=== PATIENT | male | born 1990 | race Caucasian/White ===

== ENCOUNTER 2018-03-11 13:14 | Emergency (ER) | payer OTHER ==
--- NOTE | 2018-03-11 14:03 | ED Physician Chart ---
ED Chief Complaint/HPI - Patient Information Date Seen:: 03/11/18 Time Seen:: 13:45 Chief Complaint:: rash History of Present Illness:: 27 yr old male with rash dorsum rt wrist for 3 mos pt smoker visiting here from [facility] has been using bactroban without relief Allergies:: Allergies Allergy/AdvReac Type Severity Reaction Status Date / Time No Known Allergies Allergy Verified 03/11/18 13:26 Vitals:: Vital Signs - 8 hr 03/11/18 03/11/18 13:29 13:48 Temp 97.8 F 97.8 F HR 85 85 RR 16 16 BP 129/92 129/82 O2 Sat % 95 99 ED Review of Systems - Review of Systems Skin: Skin lesions (rash crusty round in appearance moist in appearance) Head: No headache Eyes: No loss of vision ENT: No earache Neck: No neck pain Cardio Vascular: No chest pain Pulmonary: No SOB GI: No nausea, No vomiting G/U: No dysuria Endocrine: No polyuria Psychiatric: No anxiety Hematopoietic: No bruising Allergic/Immuno: No urticaria Neurological: No syncope ED Past Medical History - Past Medical History Past Medical History: No significant medical hx Family Medical History - Family Member Mother Living Status: Other Medical History: emphysema ED Physical Exam - Physical Examination Other Skin comments:: round circular lesion as round as a [place] on dorsum wrist moist scab like Neck: Nontender Respiratory: Nl effort/Exclusion Cardio Vascular: RRR GI: No tenderness/rebounding/guarding Extremities: No tenderness or effusion Neuro/Psych: Alert/oriented ED Septic Shock - . Is Septic Shock (SBP<90, OR Lactate>4 mmol\L) present?: No - <6hrs of presentation: Vital Signs: Vital Signs - 8 hr 03/11/18 03/11/18 13:29 13:48 Temp 97.8 F 97.8 F HR 85 85 RR 16 16 BP 129/92 129/82 O2 Sat % 95 99 ED Reassessment (Disposition) - Reassessment Reassessment Condition:: Unchanged - Diagnosis Diagnosis:: rash r/o tinea - Aftercare/Follow up Instructions Aftercare/Follow-Up Instructions:: Counseled pt regarding lab results/diagnosis & need follow up Medication Prescribed:: nizoral lotrimin cream - Patient Disposition Discharge/Transfer:: Home Condition at Disposition:: Stable
== END 2018-03-11 14:03 | disposition home or self-care (01) ==
LOC: ER 13:14
DX: R21 Rash and other nonspecific skin eruption (principal); F17.200 Nicotine dependence, unspecified, uncomplicated
CPT/HCPCS: Z7502